=== PATIENT | male | born 2000 | race Two or more races ===

== ENCOUNTER 2023-03-29 17:50 | Emergency (ER) | payer OTHER ==
[2023-03-29 17:54] VITALS: BP 103/71; PULSE 97; RESP 18; TEMP 97; BMI 21.7
[2023-03-29] MEDS ORDERED: BACITRACIN ZINC 15 GM TUBE TOPICAL OINTMENT TP SCH ×2 (18:11→22:00)
== END 2023-03-29 18:26 | disposition home or self-care (01) ==
LOC: JERFT 17:50
DX: S50.812A Abrasion of left forearm, initial encounter (principal); W50.4XXA Accidental scratch by another person, initial encounter
CPT/HCPCS: 99283-25

== ENCOUNTER 2023-05-12 20:53 | Emergency (ER) | payer OTHER ==
[2023-05-12 21:01] VITALS: BP 119/73; PULSE 82; RESP 18; TEMP 98.5; BMI 21.7
== END 2023-05-12 22:56 | disposition home or self-care (01) ==
LOC: JERFT 20:53
DX: M25.512 Pain in left shoulder (principal); S49.92XA Unspecified injury of left shoulder and upper arm, initial encounter; X58.XXXA Exposure to other specified factors, initial encounter
CPT/HCPCS: 73030-TC-LT-FY; 99283-25

== ENCOUNTER 2023-10-10 07:00 | Emergency (ER) | payer SELFPAY ==
[2023-10-10 07:08] VITALS: BP 130/75; PULSE 77; RESP 18; TEMP 97.8; BMI 20.9
== END 2023-10-10 09:52 | disposition home or self-care (01) ==
LOC: JER 07:00
DX: J06.9 Acute upper respiratory infection, unspecified (principal); R09.81 Nasal congestion; R53.81 Other malaise; R07.0 Pain in throat; Z20.822 Contact with and (suspected) exposure to COVID-19
CPT/HCPCS: 0241U-QW; 99283-25

== ENCOUNTER 2024-03-04 03:27 | Emergency (ER) | payer BC ==
[2024-03-04 03:34] VITALS: BP 110/75; PULSE 66; RESP 20; TEMP 97.7; BMI 20.9
[2024-03-04] MEDS ORDERED: ACETAMINOPHEN 325 MG TABLET (FP) ONE (04:11)
[2024-03-04] MEDS ORDERED: DEXAMETHASONE SOD PHOSPHATE 10 MG/1 ML VIAL ONE ×2 (04:12)
[2024-03-04] MEDS: ACETAMINOPHEN 325 MG TABLET (FP) PO ONE (04:13)
[2024-03-04] MEDS: DEXAMETHASONE SOD PHOSPHATE 10 MG/1 ML VIAL PO ONE (04:14)
[2024-03-04 04:24] LABS: THROAT:GRP A STREP DETECTED (NOTDETECTED)
[2024-03-04] MEDS ORDERED: AMOXICILLIN 250 MG CAPSULE ONE (04:45)
[2024-03-04] MEDS: AMOXICILLIN 500 MG CAPSULE (FP) PO ONE (04:46)
== END 2024-03-04 04:48 | disposition home or self-care (01) ==
LOC: JER 03:27
DX: J02.0 Streptococcal pharyngitis (principal); R09.81 Nasal congestion; R05.9 Cough, unspecified; R50.9 Fever, unspecified; R11.10 Vomiting, unspecified; Z20.822 Contact with and (suspected) exposure to COVID-19
CPT/HCPCS: 0241U-QW; 87651; 99283-25; J1100

== ENCOUNTER 2024-07-28 11:33 | Emergency (ER) | payer BC ==
[2024-07-28 11:53] VITALS: BP 130/89; PULSE 97; RESP 16; TEMP 98.5; BMI 34.3
== END 2024-07-28 14:13 | disposition home or self-care (01) ==
LOC: JERFT 11:33
DX: M25.512 Pain in left shoulder (principal)
CPT/HCPCS: 73030-TC-LT-FY; 99283-25